=== PATIENT | female | born 1995 | race Caucasian/White ===

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

== ENCOUNTER 2017-07-10 15:34 | Emergency (ER) | payer SELFPAY ==
[~2017-07-10] VITALS: Ht 167.6 cm; Wt 63.5 kg
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
[2017-07-10] MEDS ORDERED: AZIT250T12 PO (15:44)
[2017-07-10] MEDS ORDERED: D-ME118S33 PO (15:44)
[2017-07-10] MEDS ORDERED: DEXAMETHASONE 10 MG/ML (DECADRON) 1 ML VIAL IM ONE (15:45)
--- NOTE | 2017-07-10 15:45 | ED Cough/URI ---
General Chief Complaint: Oral/Throat Problems Stated Complaint: SORE THROAT Source: patient Exam Limitations: no limitations History of Present Illness Date Seen by Provider: Jul 10, 2017 Time Seen by Provider: 15:41 Initial Comments To ER with reports of sore throat, nasal congestion, pressure in her ears and difficulty hearing since Saturday07/06/17. On Saturday she had fevers that were present for one day before resolving and have not recurred since. She does have a mild nonproductive cough. Timing/Duration: constant Severity/Quality: dry cough Associated Symptoms: cough Allergies and Home Medications Allergies Coded Allergies: Penicillins (Verified Allergy, Unknown, 12/15/15) latex (Verified Allergy, Unknown, 02/10/16) Patient Home Medication List Home Medication List Reviewed: Yes Review of Systems Constitutional: see HPI, chills, fever EENTM: see HPI, hearing loss, ear pain, nose congestion Respiratory: see HPI, cough Genitourinary: no symptoms reported Musculoskeletal: no symptoms reported Skin: no symptoms reported Past Mzursbi-Szqiyq-Rqekyw Hx Patient Social History Recent Foreign Travel: No Contact w/Someone Who Travel: No Recent Hopitalizations: No Seasonal Allergies Seasonal Allergies: No Past Medical History Asthma Headaches /Migraines Reproductive Disorders: No Family Medical History No Pertinent Family Hx Physical Exam Vital Signs Capillary Refill : General Appearance: WD/WN, no apparent distress, other (well-appearing no distress) Eyes: Bilateral Eye Normal Inspection, Bilateral Eye PERRL, Bilateral Eye EOMI HEENT: PERRL/EOMI, normal ENT inspection, pharyngeal erythema, other (TMs are dull and slightly erythematous bilaterally but there is no bulging) Neck: non-tender, full range of motion Respiratory: lungs clear, normal breath sounds, no respiratory distress, no accessory muscle use Cardiovascular: regular rate, rhythm, no murmur Gastrointestinal: normal bowel sounds, non tender, soft Neurologic/Psychiatric: alert, normal mood/affect, oriented x 3 Skin: normal color, warm/dry Progress/Results/Core Measures Suspected Sepsis SIRS Temperature: Pulse: Respiratory Rate: Blood Pressure / Mean: Results/Orders My Orders Orders - CARLITOS REGALADO APRN Dexamethasone Injection (Decadron Inject (07/10/17 15:45) Vital Signs/I&O Capillary Refill : Departure Impression Primary Impression: Upper respiratory infection Disposition: 01 HOME, SELF-CARE Condition: Stable Departure-Patient Inst. Decision time for Depature: 15:43 Referrals: NO,LOCAL PHYSICIAN (PCP/Family) Primary Care Physician Patient Instructions: NO INSTRUCTIONS GIVEN Add. Discharge Instructions: 1. Drink plenty of fluids 2. Continue Tylenol Motrin for fever control and body aches 3. Decongestant and antibiotic as directed All discharge instructions reviewed with patient and/or family. Voiced understanding. Scripts Azithromycin (Azithromycin) 250 Mg Tablet 250 MG PO UD, #6 TAB TAKE 2 TABLETS ON DAY ONE THEN TAKE 1 TABLET DAILY FOR FOUR MORE DAYS Prov: CARLITOS REGALADO APRN 07/10/17 D-Methorphan Hb/P-Epd HCl/Bpm (Bromfed Dm Cough Syrup) 118 Ml Syrup 5 ML PO Q4H PRN for CONGESTION, #120 ML Prov: CARLITOS REGALADO APRN 07/10/17 Work/School Note: Work Release Form Date Seen in the Emergency Department: Jul 10, 2017 Return to Work: Jul 11, 2017 CARLITOS REGALADO APRN Jul 10, 2017 15:45
[2017-07-10 15:51] VITALS: BP 134/80
== END 2017-07-10 15:50 | disposition home or self-care (01) ==
LOC: EDUNIT# 15:34 → ER 15:36
DX: J06.9 Acute upper respiratory infection, unspecified (principal); J45.909 Unspecified asthma, uncomplicated; G43.909 Migraine, unspecified, not intractable, without status migrainosus; Z88.0 Allergy status to penicillin; Z91.040 Latex allergy status
CPT/HCPCS: 96372; 99284